=== PATIENT | female | born 1965 | race Two or more races ===

== ENCOUNTER 2024-10-01 15:46 | Emergency (ER) | payer MEDICAID, SELFPAY ==
[2024-10-01 16:09] VITALS: BP 147/84; PULSE 83; RESP 16; TEMP 37; O2SAT 99; BMI 20.5
--- NOTE | 2024-10-01 16:19 | EKG_ITS ---
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
--- NOTE | 2024-10-01 16:19 | PD.EDRME ---
Rapid Medical Screening Exam E Arrival date/time: 10/01/24 15:46 58-year-old female presents to the emergency department with complaints of palpitations, chest pain generalized fatigue for 2 days. Does report she started a new medication of Lexapro 3 days ago I have greeted and performed a focused initial assessment of this patient. Initial appropriate labs ordered at this time. A comprehensive ED assessment and evaluation of the patient and analysis of all test and completion of medical decision making process will be conducted by additional ED provider. Chief Complaint: Dizziness Time Seen by Provider: 10/01/24 16:02 Vital signs: Vital Signs Temperature 98.6 F 10/01/24 16:09 Pulse Rate 83 10/01/24 16:09 Respiratory Rate 16 10/01/24 16:09 Blood Pressure 147/84 H 10/01/24 16:09 Pulse Oximetry (%) 99 10/01/24 16:09 Oxygen Delivery Method Room Air 10/01/24 16:09
[2024-10-01 16:39] LABS: Basophils % (Auto) 0 % (0-2.5); Eosinophils % (Auto) 0 % (0-10); Hematocrit 39.7 % (36.0-46.0); Hemoglobin 13.6 g/dL (12.0-16.0); Immature Granulocytes % (Auto) 0 % (0-0); Immature Granulocytes Auto 0.02 Thou/mm3 (0.00-0.00); Lymphocytes % (Auto) 26 % (10-50); Mean Corpuscular HGB Conc 34.3 g/dl (31.0-37.0); Mean Corpuscular Hemoglobin 29.9 pg (25.0-35.0); Mean Corpuscular Volume 87 fL (80-100); Monocytes # (Auto) 0.5 Thou/mm3 (0.0-0.8); Monocytes % (Auto) 6 % (0-12); Neutrophils # (Auto) 5.1 Thou/mm3 (1.8-7.7); Neutrophils % (Auto) 67 % (37-80); Nucleated Red Blood Cell % 0 /100 WBC (0); Platelet Count 269 Thou/mm3 (140-440); RDW Standard Deviation 40.9 fL (36.4-46.3); Red Blood Count 4.55 Miln/mm3 (4.00-5.20); White Blood Count 7.6 Thou/mm3 (3.6-11.0)
[2024-10-01 16:59] LABS: Alanine Aminotransferase 13 U/L (10-49); Albumin, Serum 4.4 gm/dL (3.5-5.0); Albumin/Globulin Ratio 1.6 (1.2-2.2); Alkaline Phosphatase 110 U/L (46-116); Anion Gap 11 (7-16); Aspartate Amino Transferase 18 U/L (0-34); BUN/Creatinine Ratio 11 Ratio (12-20); Bilirubin,Total 0.6 mg/dL (0.3-1.2); Blood Urea Nitrogen 9 mg/dL (9-23); Calcium 9.4 mg/dL (8.3-10.6); Calcium (Corrected) 9.4 mg/dL (8.5-10.1); Carbon Dioxide 25.3 mMol/L (20.0-31.0); Chloride 104 mMol/L (98-107); Creatinine (Component) 0.8 mg/dL (0.6-1.3); Estimated Creatinine Clearance 55.7 mL/min (>60); Globulin 2.8 gm/dL (2.3-3.5); Glucose 169 mg/dL (74-106); Lipase 53 U/L (12-53); Osmolality,Calculated 282 (275-295); Potassium 3.5 mMol/L (3.4-5.1); Sodium 140 mMol/L (136-145); Total Protein 7.2 gm/dL (5.7-8.2); Troponin I < 0.020 ng/mL (0.0-0.045); eGFR > 60 See Note
[2024-10-01 17:05] LABS: Collection Type, Urine Clean Catch
[2024-10-01 17:15] LABS: Bacteria,Urine Rare; Bilirubin,Urine Negative (Negative); Blood,Urine Negative (Negative); Clarity,Urine Clear (Clear/Hazy); Color,Urine Colorless (Lt Yel-Yel); Glucose, Urine Negative (Negative); Ketones,Urine Negative (Negative); Leukocyte Esterase,Urine Positive (Negative); Nitrite,Urine Negative (Negative); PH,Urine 7.5 (5.0-7.0); Protein,Urine Negative (Neg - Trace); RBC,Urine 1 /hpf (0-3); Specific Gravity,Urine 1.008 (1.001-1.035); Squamous Epithelial Cell,Urine 5 /hpf (0-5); Urobilinogen,Urine Negative mg/dL (0.0-1.0); WBC,Urine 8 /hpf (0-5)
[2024-10-01 17:27] VITALS: BP 148/76; PULSE 74; RESP 16; TEMP 36.4; O2SAT 98
[2024-10-01 20:01] VITALS: BP 146/83; PULSE 72; RESP 18; TEMP 36.6; O2SAT 100
--- NOTE | 2024-10-01 20:10 | EDNOTE_ITS ---
<Statement entered by Kathryn Cain MD - 10/01/24 21:20> As co-signing physician, I was present and available for consult prn. I concur with the plan and care as documented by the midlevel provider. ED Dizzyness RME/HPI General Chief Complaint: Dizziness Stated Complaint: HYPERTENSION, DIZZINESS, HEART PALPITATIONS Time Seen by Provider: 10/01/24 16:02 Arrival date/time: 10/01/24 15:46 RME / HPI RME / HPI Narrative: 58-year-old female presents to the emergency department with complaints of palpitations, chest pain generalized fatigue for 2 days. Getting worse this morning, described as palpitation, hyperventilation jittery feeling very anxious. Does report she started a new medication of Lexapro 3 days ago. Denies any homicidal or suicidal ideation. Related Data Allergies Allergy/AdvReac Type Severity Reaction Status Date / Time No Known Allergies AdvReac Unknown Uncoded 10/01/24 15:51 Review of Systems Review of Systems Narrative Review of Systems: Review of system reviewed and within normal limits except mentioned in HPI ED Exam Narrative Physical exam: VITAL SIGNS: Reviewed. GENERAL APPEARANCE: Alert and interactive, follows commands, no acute distress, HEAD AND FACE: Non-traumatic. ENT: PERRL, pink conjunctivitis, eyelid no trauma, Mucous membrane moist. NECK: Supple, nontender, no nuchal rigidity. CHEST: No tenderness, no crepitus, no paradoxical movement, no retractions. LUNGS: Clear, well ventilated, symmetric, no rales, no wheezing, no ronchi, no stridor, good breath sounds bilaterally. HEART: Regular rate, regular rhythm, no murmur, no gallops. ABDOMEN: Soft, positive bowel sounds, nondistended, no guarding, nontender, no rebound, no masses, RECTAL: Deferred. GENITAL: Deferred. NEUROLOGICAL: Gross motor function intact sensory function intact, Appropriate for age. MUSCULOSKELETAL: low back nontender, full range of motion. EXTREMITIES: Nontender, full range of motion. SKIN: Color pink, dry, no rash, no lacerations, no abrasions, no contusions. LYMPHATICS: Deferred. Course Quality Measures none Orders Category Date Time Status EKG (ED ONLY) *Do not use* NOW Care 10/01/24 16:19 Completed EKG (ED Only) Stat Exams 10/01/24 16:19 Draft CBC Stat Lab 10/01/24 16:29 Completed Comprehensive Metabolic Panel Stat Lab 10/01/24 16:29 Completed Lipase Stat Lab 10/01/24 16:29 Completed Troponin I Stat Lab 10/01/24 16:29 Completed Urinalysis Stat Lab 10/01/24 16:58 Completed Vital Signs Vital signs: Vital Signs Temperature 98.6 F 10/01/24 16:09 Pulse Rate 83 10/01/24 16:09 Respiratory Rate 16 10/01/24 16:09 Blood Pressure 147/84 H 10/01/24 16:09 Pulse Oximetry (%) 99 10/01/24 16:09 Oxygen Delivery Method Room Air 10/01/24 16:[address] [facility] Narrative:: 58-year-old female presents to the emergency department with complaints of palpitations, chest pain generalized fatigue for 2 days. Getting worse this morning, described as palpitation, hyperventilation jittery feeling very anxious. Does report she started a new medication of Lexapro 3 days ago. Denies any homicidal or suicidal ideation. Patient's cardiac workup all came back normal including EKG that showed normal sinus rhythm, ventricular rate of 78 bpm, ST segment elevation depression noted. Prior to discharge patient was noted to be calm, and cooperative. She is not showing any sign of anxiety at this time. Patient appears nontoxic and hemodynamically stable. Patient discharged home and instructed to follow-up with primary care provider in 24 to 48 hours. Instructed to return to the emergency department immediately if worsening of symptoms Patient data External records reviewed:: None Clinical information provided by:: patient and family Social determinants that could affect healthcare access:: none Patient has the following chronic illnesses:: Although pt's initial presentation was concerning, Pt now reports feeling better after Ativan and has an unremarkable vital signs. Stable for D/C. Hydroxyzine given as needed How is presenting disease/condition affected by chronic disease/condition?: exacerbated by Evaluation data The following diagnostics were reviewed and interpreted by me:: lab results, radiology exam(s) and EKG tracing(s) Lab and/or radiology exams considered but not ordered:: None Interpretation Summary: See results in MDM Medications / Prescriptions Medications or Prescriptions considered but not ordered:: None Medication administrations:: None Consultations Consultation(s) initiated? (list below): No Diagnosis Dizziness Differential Diagnosis: adverse reaction to drug and other (Anxiety symptoms, hyperventilation) Most likely diagnosis given after review of the tests above:: anxiety Admission Indicated Admission indicated?: not indicated Admission Request Was there a request for admission?: No Disposition Plan Disposition Plan: Discharge Discharge Attestation Discharge Attestation: The patient and all family members were given an opportunity to ask questions and understood the discharge instructions. Discharge instructions specifically effects, indications for sooner follow up or return to the emergency department, and the expected course of current diagnosis. Patient condition: Stable Discharge Plan Plan Patient Disposition: HOME (Self Care) Disposition Comment: Stable Prescriptions/Referrals Referrals: Lito Tilley MD [Primary Care Provider] - In 1 week Problem List Clinical Impression: Anxiety Patient/Caregiver Discharge Instructions Discharge Activity: activity as tolerated Education Materials: Getting the Most from a Mental ... Additional Instructions: Thank you for the opportunity for serving you today. You are stable for discharged . You are advised to: Follow-up with your PCP in 1 to 2 days Return to ED for worsening of symptoms Increase oral fluids Take medication as prescribed by your doctor Print Language: [place]ize[place] Stand Alone Forms: Razia Award Info., Patient Portal Info Letter ENOCH/HANK Supervising Physician ENOCH/HANK Supervising Physician: MD Guadalupe
== END 2024-10-01 20:38 | disposition home or self-care (01) ==
PROVIDERS: Nurse Practitioner Primary Care; Emergency Provider Emergency Medicine; PCP Family Medicine
DX: F41.9 Anxiety disorder, unspecified (principal)
CPT/HCPCS: 36415; 80053; 81001; 83690; 84484; 85025; 93005; 99283